=== PATIENT | male | born 1940 | race Caucasian/White ===

== ENCOUNTER → 2017-01-08 | Outpatient (CLI) | payer OTHER ==
[2017-01-08 14:38] LABS: ESTIMATED AVERAGE GLUCOSE 151 mg/dl; HA1C FLAG Normal (Normal)
[2017-01-08 14:45] LABS: BLOOD UREA NITROGEN 19 mg/dl (7-18); BUN/CREATININE RATIO 15.5 (10-20); CALCIUM 9.7 mg/dl (8.5-10.1); CARBON DIOXIDE 28 mmol/L (21-32); CHLORIDE 104 mmol/L (98-107); GLUCOSE 113 mg/dl (70-99); PHOSPHORUS 2.7 mg/dl (2.5-4.9); POTASSIUM 5.7 mmol/L (3.5-5.1); SODIUM 138 mmol/L (136-145)
== END | disposition home or self-care (01) ==
LOC: C.LABMFLN 07:03
PROVIDERS: ATTEND Nurse Practitioner
DX: R73.01 Impaired fasting glucose (principal)

== ENCOUNTER → 2017-01-23 | Outpatient (CLI) | payer OTHER ==
[2017-01-23 13:47] LABS: URINE APPEARANCE CLOUDY (CLEAR); URINE BILIRUBIN NEG (NEG); URINE COLOR YELLOW; URINE EPITHELIAL CELL AUTO 0-5 /lpf (0-5); URINE NITRITE NEG (NEG); URINE PH 5.5 (4.5-7.5); URINE SPECIFIC GRAVITY 1.014 (1.000-1.030); UROBILINOGEN NEG (NEG)
[2017-01-23 13:49] LABS: MANUAL MICROSCOPIC REQUIRED? NO; REVIEW REQ? NO
== END | disposition home or self-care (01) ==
LOC: C.LABMFLN 10:03
PROVIDERS: ATTEND Nurse Practitioner
DX: N39.0 Urinary tract infection, site not specified (principal)

== ENCOUNTER → 2017-04-02 | Outpatient (CLI) | payer OTHER ==
[2017-04-02 13:10] LABS: BLOOD UREA NITROGEN 19 mg/dl (7-18); BUN/CREATININE RATIO 19.6 (10-20); CARBON DIOXIDE 27 mmol/L (21-32); CHLORIDE 106 mmol/L (98-107); CHOLESTEROL 125 mg/dl (0-200); CREATININE 0.95 mg/dl (0.60-1.40); GLUCOSE 100 mg/dl (70-99); POTASSIUM 4.4 mmol/L (3.5-5.1); SODIUM 139 mmol/L (136-145); TRIGLYCERIDES 71 mg/dl (0-150); VERY LOW DENSITY LIPOPROT CALC 14 mg/dl
[2017-04-02 13:13] LABS: CHOLESTEROL/HDL RATIO 2.6; HDL CHOLESTEROL 48 mg/dl; LDL CHOLESTEROL CALCULATED 63 mg/dl; PHOSPHORUS 2.4 mg/dl (2.5-4.9)
[2017-04-02 13:14] LABS: ESTIMATED AVERAGE GLUCOSE 123 mg/dl; HA1C FLAG Normal (Normal)
== END | disposition home or self-care (01) ==
LOC: C.LABMFLN 06:50
PROVIDERS: ATTEND Nurse Practitioner
DX: E78.5 Hyperlipidemia, unspecified (principal)

== ENCOUNTER → 2017-10-10 | Outpatient (CLI) | payer OTHER ==
[2017-10-10 12:40] LABS: ALBUMIN 4.1 gm/dl (3.4-5.0); BLOOD UREA NITROGEN 26 mg/dl (7-18); CALCIUM 9.3 mg/dl (8.5-10.1); CARBON DIOXIDE 26 mmol/L (21-32); CREATININE 1.46 mg/dl (0.60-1.40); GLUCOSE 109 mg/dl (70-99); PHOSPHORUS 2.5 mg/dl (2.5-4.9); POTASSIUM 5.7 mmol/L (3.5-5.1); SODIUM 135 mmol/L (136-145)
[2017-10-10 13:12] LABS: HEMOGLOBIN A1C 6.1 % (4.5-5.6)
== END | disposition home or self-care (01) ==
LOC: C.LABMFLN 07:03
PROVIDERS: ATTEND Nurse Practitioner
DX: R73.03 Prediabetes (principal)